=== PATIENT | female | born 1985 | race African-American/Black ===

== ENCOUNTER 2022-03-18 11:39 | Emergency (ER) | payer OTHER ==
[~2022-03-18] VITALS: Ht 172.7 cm; Wt 77.0 kg
[2022-03-18 11:42] VITALS: BP 135/86
[2022-03-18] MEDS ORDERED: KETOROLAC 60MG/2ML VIAL IM ONE (13:30)
[2022-03-18 14:13] LABS: CLARITY URINE CLEAR (CLEAR); COLOR URINE YELLOW (YELLOW); KETONES URINE NEGATIVE (NEGATIVE); LEUKOCYTE ESTERASE URINE NEGATIVE (NEGATIVE); NITRITE URINE NEGATIVE (NEGATIVE); OCCULT BLOOD URINE NEGATIVE (NEGATIVE); PH URINE 6.5 (4.5-8.0); PROTEIN URINE NEGATIVE (NEGATIVE); SPECIFIC GRAVITY URINE 1.009 (1.005-1.030); UROBILINOGEN URINE 0.2 E.U./dL (0.2-1.0)
[2022-03-18 14:14] LABS: BASOPHILS % 0.7 % (0.0-2.0); HEMATOCRIT. 38.1 % (36.0-48.0); HEMOGLOBIN. 12.9 g/dL (12.0-16.0); LYMPHOCYTES % 32.4 % (20.0-50.0); MEAN CORPUSCULAR VOLUME 97.4 fL (81.0-99.0); MEAN PLATELET VOLUME 8.6 fl (7.4-10.4); MONOCYTES % 5.9 % (2.0-8.0); PLATELET 242 x1000/uL (130-400); RED BLOOD CELL COUNT 3.91 mill/uL (4.2-5.4); RED CELL DISTRIBUTION WIDTH 13.9 % (11.6-14.6)
[2022-03-18 14:20] LABS: CHLORIDE 107 mEq/L (98-107)
[2022-03-18] MEDS ORDERED: POLY17PO3 MT (16:44)
[2022-03-18] MEDS ORDERED: IBUP-2029 MT (16:44)
== END 2022-03-18 16:52 | disposition home or self-care (01) ==
LOC: ER 11:39
DX: R10.2 Pelvic and perineal pain (principal); K59.00 Constipation, unspecified
CPT/HCPCS: 36415; 76830; 76856; 80053; 81003; 81025; 83690; 85025; 96372; 99284; J1885